=== PATIENT | male | born 1995 | race Caucasian/White ===

== ENCOUNTER 2022-12-04 11:18 | Emergency (ER) | payer SELFPAY ==
[~2022-12-04] VITALS: Ht 165.1 cm; Wt 72.1 kg
[2022-12-04 11:28] VITALS: BP 123/71
--- NOTE | 2022-12-04 12:12 | NUR ---
Patient being evaluated by physician at bedside.
--- NOTE | 2022-12-04 12:26 | NUR ---
PT HAS MULTIPLE COMPLAINTS , CP ,VERGARA, BACK PAIN.BILAT KNEE PAIN , NO RESCENT TRAUMA, MD AT TO EXAMINE
--- NOTE | 2022-12-04 12:26 | NUR ---
Lab at bedside.
[2022-12-04 13:01] LABS: ALBUMIN 3.6 g/dL (3.4-5.0); ANION GAP 10.2 (8-16); ASPARTATE AMINOTRANSFERASE 20 U/L (15-37); CARBON DIOXIDE 29.9 mmol/L (21-32); CHLORIDE 103 mmol/L (98-107); CREATININE 0.7 mg/dL (0.6-1.3); FREE T4 (FREE THYROXINE) 1.12 ng/dL (0.76-1.46); GFR ARICAN-AMERICAN 173 mL/min (>90); GLUCOSE 93 mg/dL (74-106); LIPASE 69 U/L (73-393); MAGNESIUM 2.1 mg/dL (1.8-2.4); POTASSIUM 4.1 mmol/L (3.5-5.1); SODIUM SERUM 139 mmol/L (136-145); THYROID STIMULATING HORMONE 1.03 uIU/mL (0.34-3.74); TOTAL BILIRUBIN 0.2 mg/dL (0.0-1.0); UREA NITROGEN, BLOOD 11 mg/dL (7-18)
[2022-12-04 13:27] LABS: BASOPHILS # (AUTO) 0.1 K/uL (0.00-0.22); BASOPHILS % (AUTO) 1.2 % (0.0-2.0); EOSINOPHILS # (AUTO) 0.2 K/uL (0-0.4); EOSINOPHILS % (AUTO) 3.8 % (0.0-4.0); HEMATOCRIT 40.1 % (36-52); HEMOGLOBIN 13.6 g/dL (12.0-18.0); LYMPHOCYTES # (AUTO) 1.9 K/uL (2.0-11.5); LYMPHOCYTES % (AUTO) 29.9 % (20.5-51.1); MEAN CORPUSCULAR HEMOGLOBIN 28 pg (27-31); MEAN CORPUSCULAR HGB CONC 34 g/dL (33-37); MEAN CORPUSCULAR VOLUME 83.2 fL (80-94); MONOCYTES # (AUTO) 0.3 K/uL (0.8-1.0); NEUTROPHILS # (AUTO) 3.7 K/uL (1.8-7.7); NEUTROPHILS % (AUTO) 60.1 % (42.2-75.2); PLATELET COUNT (AUTO) 443 K/uL (140-450); RED BLOOD CELL COUNT(AUTO) 4.82 MIL/uL (4.20-6.10); RED CELL DISTRIBUTION WIDTH 12.8 % (11.6-13.7); WHITE BLOOD COUNT (AUTO) 6.2 K/uL (4.8-10.8)
[2022-12-04] MEDS ORDERED: KETOROLAC 15 MG/ML VIAL IM ONE (14:00)
[2022-12-04 14:33] VITALS: BP 98/57
--- NOTE | 2022-12-04 14:33 | NUR ---
Patient discharged with v/s stable. Written and verbal after care instructions given. Patient verbalized understanding. Ambulatory with steady gait. All questions addressed prior to discharge. Advised to follow up with PMD.
== END 2022-12-04 14:33 | disposition home or self-care (01) ==
LOC: MED 11:18
DX: R00.2 Palpitations (principal); R20.0 Anesthesia of skin; Z79.899 Other long term (current) drug therapy
CPT/HCPCS: 36415; 80053; 83690; 83735; 84439; 84443; 84484; 85025; 93005; 96372; 99284; J1885